=== PATIENT | female | born 1945 | race Caucasian/White ===

== ENCOUNTER 2018-10-09 10:57 | Outpatient (CLI) | payer MEDICARE ==
--- NOTE | 2018-10-09 13:43 | MMO ---
Bilateral MAMMO Bilat Screen [facility]. CLINICAL HISTORY: Patient is 72 years old and is seen for screening. The patient has no family history of breast cancer. The patient has no personal history of cancer. VIEWS: The views performed were: bilateral craniocaudal with tomosynthesis and bilateral mediolateral oblique with tomosynthesis. FILMS COMPARED: The present examination has been compared to prior imaging studies performed at [facility] on 09/11/2010, 02/21/2012, 08/03/2013 and 09/13/2015, and at [facility] on 04/03/2008 and 06/20/2009. MAMMOGRAM FINDINGS: There are scattered fibroglandular densities. Finding 1: There are vascular calcifications seen in both breasts. Finding 2: There are benign appearing calcifications seen in both breasts. There are no suspicious masses, calcifications or areas of architectural distortion. IMPRESSION: ALL ABOVE FINDINGS ARE BENIGN. A ROUTINE FOLLOW-UP MAMMOGRAM IN 1 YEAR IS RECOMMENDED. THE RESULTS OF THIS EXAM WERE SENT TO THE PATIENT. ACR BI-RADS Category 2 - Benign finding MAMMOGRAPHY NOTE: 1. A negative mammogram report should not delay a biopsy if a dominant of clinically suspicious mass is present. 2. Approximately 10% to 15% of breast cancers are not detected by mammography. 3. Adenosis and dense breasts may obscure an underlying neoplasm.
== END 2018-10-09 10:58 | disposition home or self-care (01) ==
LOC: BICMAMMO 10:57
PROVIDERS: ATTEND Family Medicine
DX: Z12.31 Encounter for screening mammogram for malignant neoplasm of breast (principal)
CPT/HCPCS: 77063; 77067

== ENCOUNTER 2018-10-11 10:44 | Outpatient (CLI) | payer MEDICARE ==
--- NOTE | 2018-10-11 11:15 | BD ---
Exam: DEXA Bone Density History: Post menopausal. Lumbar Spine: BMD (g/cm2) L1 0.820 T-Score: -1.5 L2 0.836 T-Score: -2.7 L3 0.822 T-Score: -2.4 L4 0.856 T-Score: -1.9 L1-L4 0.835 T-Score: -1.9 Femoral Neck: 0.678 T-Score: -1.5 Total Femur: 0.846 T-Score: -0.8 Impression: 1. Osteopenia of the lumbar spine and left femoral neck. 2. 10-year fracture risk of major osteoporotic fracture is 8.3%, hip fracture 1.4%. These fracture pr obabilities are calculated for an untreated patient. POS: SIN
== END 2018-10-11 10:45 | disposition home or self-care (01) ==
LOC: BICMAMMO 10:44
PROVIDERS: ATTEND Family Medicine
DX: M81.0 Age-related osteoporosis without current pathological fracture (principal); M85.89 Other specified disorders of bone density and structure, multiple sites
CPT/HCPCS: 77080

== ENCOUNTER 2021-03-30 10:58 | Outpatient (CLI) | payer MEDICARE, OTHER | END 2021-03-30 10:59 | disposition home or self-care (01) | LOC: BICMAMMO 10:58 | PROVIDERS: ATTEND Family Medicine | DX: Z12.31 Encounter for screening mammogram for malignant neoplasm of breast (principal); M85.89 Other specified disorders of bone density and structure, multiple sites | CPT/HCPCS: 77063; 77067; 77080 ==

== ENCOUNTER 2022-08-24 11:33 | Outpatient (CLI) | payer MEDICARE, OTHER | END 2022-08-24 11:34 | disposition home or self-care (01) | LOC: BICMAMMO 11:33 | PROVIDERS: ATTEND Family Medicine | DX: Z12.31 Encounter for screening mammogram for malignant neoplasm of breast (principal); N64.89 Other specified disorders of breast | CPT/HCPCS: 77063; 77067 ==

== ENCOUNTER 2022-08-27 13:18 | Outpatient (CLI) | payer MEDICARE, OTHER | END 2022-08-27 13:19 | disposition home or self-care (01) | LOC: BICMAMMO 13:18 | PROVIDERS: ATTEND Family Medicine | DX: N64.89 Other specified disorders of breast (principal) | CPT/HCPCS: 77065; G0279 ==

== ENCOUNTER 2024-06-20 10:03 | Outpatient (CLI) | payer MEDICARE, OTHER | END 2024-06-20 10:04 | disposition home or self-care (01) | LOC: BICMAMMO 10:03 | PROVIDERS: ATTEND Family Medicine | DX: Z12.31 Encounter for screening mammogram for malignant neoplasm of breast (principal) | CPT/HCPCS: 77063; 77067 ==